=== PATIENT | female | born 1990 | race Two or more races ===

== ENCOUNTER 2019-03-14 10:16 | Emergency (ER) | payer MEDICAID ==
[~2019-03-14] VITALS: Ht 165.1 cm; Wt 69.9 kg
[2019-03-14 10:23] VITALS: BP 142/77
== END 2019-03-14 10:54 | disposition home or self-care (01) ==
LOC: ER 10:19
DX: H10.13 Acute atopic conjunctivitis, bilateral (principal); J30.2 Other seasonal allergic rhinitis